=== PATIENT | female | born 1940 | race Two or more races ===

== ENCOUNTER 2021-11-10 11:33 | Inpatient (IN) | payer OTHER ==
[~2021-11-10] VITALS: Ht 154.9 cm; Wt 73.0 kg
[2021-11-10] MEDS ORDERED: JANUVIA100 MG (21:10)
[2021-11-10] MEDS ORDERED: TIROSINT25 MCG (21:12)
[2021-11-10] MEDS ORDERED: PEPCID AC20 MG (21:12)
[2021-11-10] MEDS ORDERED: RESTORIL30 MG (21:13)
[2021-11-10] MEDS ORDERED: OMEPRAZOLE20 MG (21:13)
[2021-11-10] MEDS ORDERED: STIOLTO RESPIMAT4 GM (21:13)
[2021-11-10] MEDS ORDERED: FUROSEMIDE40 MG (21:13)
[2021-11-10] MEDS ORDERED: PROLIA60 MG/1 ML (21:13)
[2021-11-10] MEDS ORDERED: TRULICITY0.75 MG/0. (21:13)
[2021-11-10] MEDS ORDERED: CLOPIDOGREL BIS75 MG (21:14)
[2021-11-10] MEDS ORDERED: AMLODIPINE BESYL5 MG (21:14)
[2021-11-18] MEDS ORDERED: STIOLTO RESPIMAT4 GM IH (19:02)
[2021-11-18] MEDS ORDERED: CLOPIDOGREL BIS75 MG PO (19:03)
[2021-11-18] MEDS ORDERED: AMLODIPINE BESYL5 MG PO (19:04)
[2021-11-18] MEDS ORDERED: HYDRALAZINE HCL25 MG PO (19:05)
[2021-11-18] MEDS ORDERED: RESTORIL15 MG PO (19:05)
[2021-11-18] MEDS ORDERED: FUROSEMIDE40 MG PO (19:06)
[2021-11-18] MEDS ORDERED: BUDESONIDE0.5 MG/2 M IH (19:07)
[2021-11-18] MEDS ORDERED: TUSSIN DM LIQU118 ML PO (19:08)
[2021-11-18] MEDS ORDERED: FAMOTIDINE40 MG PO (19:08)
[2021-11-18] MEDS ORDERED: OMEPRAZOLE20 MG PO (19:10)
[2021-11-18] MEDS ORDERED: JANUVIA100 MG PO (19:11)
[2021-11-18] MEDS ORDERED: LEVOTHYROXINE50 MCG PO (19:11)
[2021-11-18] MEDS ORDERED: FOLIC ACID1 MG PO (19:12)
[2021-11-18] MEDS ORDERED: PROTEINEX-18 LI30 ML PO (19:12)
== END 2021-11-18 20:30 | disposition home or self-care (01) | DRG 436 ==
LOC: MEDJ 11:33 → SEC-K 11:33 → MEDJ 20:13
PROVIDERS: ADMIT Internal Medicine Hematology & Oncology; ATTEND Internal Medicine Hematology & Oncology
PROC: 30233N1 Transfusion of Nonautologous Red Blood Cells into Peripheral Vein, Percutaneous Approach (ICD-10-PCS; 2021-11-10)
PROC: BW24ZZZ Computerized Tomography (CT Scan) of Chest and Abdomen (ICD-10-PCS; 2021-11-11)
PROC: 3E0F7GC Introduction of Other Therapeutic Substance into Respiratory Tract, Via Natural or Artificial Opening (ICD-10-PCS; 2021-11-11)
PROC: BW40ZZZ Ultrasonography of Abdomen (ICD-10-PCS; 2021-11-12)
PROC: 0FB03ZX Excision of Liver, Percutaneous Approach, Diagnostic (ICD-10-PCS; principal; 2021-11-16)
PROC: 0W9930Z Drainage of Right Pleural Cavity with Drainage Device, Percutaneous Approach (ICD-10-PCS; 2021-11-16)
DX: C78.7 Secondary malignant neoplasm of liver and intrahepatic bile duct (principal); C78.02 Secondary malignant neoplasm of left lung; C78.01 Secondary malignant neoplasm of right lung; J90 Pleural effusion, not elsewhere classified; J44.1 Chronic obstructive pulmonary disease with (acute) exacerbation; N17.9 Acute kidney failure, unspecified; D63.0 Anemia in neoplastic disease; I13.10 Hypertensive heart and chronic kidney disease without heart failure, with stage 1 through stage 4 chronic kidney disease, or unspecified chronic kidney disease; E11.22 Type 2 diabetes mellitus with diabetic chronic kidney disease; E11.65 Type 2 diabetes mellitus with hyperglycemia; N18.31 Chronic kidney disease, stage 3a; R59.0 Localized enlarged lymph nodes; E88.09 Other disorders of plasma-protein metabolism, not elsewhere classified; K59.03 Drug induced constipation; T45.4X5A Adverse effect of iron and its compounds, initial encounter; Z87.891 Personal history of nicotine dependence; Z79.4 Long term (current) use of insulin
CPT/HCPCS: 240

== ENCOUNTER 2022-03-04 12:56 | Inpatient (IN) | payer OTHER ==
[~2022-03-04 12:56] MED LIST: AMLODIPINE BESYL5 MG; AMLODIPINE BESYL5 MG PO; BUDESONIDE0.5 MG/2 M IH; CLOPIDOGREL BIS75 MG; CLOPIDOGREL BIS75 MG PO; FAMOTIDINE40 MG PO; FOLIC ACID1 MG PO; FUROSEMIDE40 MG; FUROSEMIDE40 MG PO; HYDRALAZINE HCL25 MG PO; JANUVIA100 MG; JANUVIA100 MG PO; LEVOTHYROXINE50 MCG PO; OMEPRAZOLE20 MG; OMEPRAZOLE20 MG PO; PEPCID AC20 MG; PROLIA60 MG/1 ML; PROTEINEX-18 LI30 ML PO; RESTORIL15 MG PO; RESTORIL30 MG; STIOLTO RESPIMAT4 GM; STIOLTO RESPIMAT4 GM IH; TIROSINT25 MCG; TRULICITY0.75 MG/0.; TUSSIN DM LIQU118 ML PO
[2022-03-06] MEDS ORDERED: EZETIMIBE10 MG (08:40)
[2022-03-06] MEDS ORDERED: YERVOY (08:40)
[2022-03-06] MEDS ORDERED: OPDIVO100 MG/10 (08:40)
[2022-03-06] MEDS ORDERED: CILOSTAZOL100 MG (08:40)
[2022-03-06] MEDS ORDERED: PENTOXIFYLLINE400 MG (08:40)
[2022-03-06] MEDS ORDERED: AZOPT10 ML (08:40)
[2022-03-06] MEDS ORDERED: DOXYCYCLINE HY100 MG (08:41)
[2022-03-06] MEDS ORDERED: ISOSORBIDE MONO30 M2 (08:41)
[2022-03-06] MEDS ORDERED: SOD FER GL62.5 MG/5 (08:41)
[2022-03-06] MEDS ORDERED: LOSARTAN POTAS100 MG (08:41)
[2022-03-06] MEDS ORDERED: ATORVASTATIN CA40 MG (08:41)
[2022-03-06] MEDS ORDERED: ADMELOG100 UNIT/1 (08:41)
[2022-03-06] MEDS ORDERED: PROLIA60 MG/1 ML (08:41)
[2022-03-06] MEDS ORDERED: PRAVASTATIN SOD40 MG (08:41)
== END 2022-03-06 17:24 | disposition home or self-care (01) | DRG 812 ==
LOC: MEDJ 12:56
PROVIDERS: ADMIT Internal Medicine Hematology & Oncology; ATTEND Internal Medicine Hematology & Oncology
PROC: 30233N1 Transfusion of Nonautologous Red Blood Cells into Peripheral Vein, Percutaneous Approach (ICD-10-PCS; 2022-03-05)
PROC: B54NZZZ Ultrasonography of Left Upper Extremity Veins (ICD-10-PCS; principal; 2022-03-06)
DX: D64.9 Anemia, unspecified (principal); C34.2 Malignant neoplasm of middle lobe, bronchus or lung; C78.00 Secondary malignant neoplasm of unspecified lung; C78.7 Secondary malignant neoplasm of liver and intrahepatic bile duct; I13.0 Hypertensive heart and chronic kidney disease with heart failure and stage 1 through stage 4 chronic kidney disease, or unspecified chronic kidney disease; D63.0 Anemia in neoplastic disease; E11.22 Type 2 diabetes mellitus with diabetic chronic kidney disease; N18.30 Chronic kidney disease, stage 3 unspecified; Z79.4 Long term (current) use of insulin; Z20.822 Contact with and (suspected) exposure to COVID-19; I50.9 Heart failure, unspecified; E03.9 Hypothyroidism, unspecified

== ENCOUNTER 2022-03-21 05:57 | Day surgery (SDC) | payer OTHER ==
[~2022-03-21 05:57] MED LIST changes: +ADMELOG100 UNIT/1; +ANORO ELLIPTA1 EACH IH; +ATORVASTATIN CA40 MG; +AZOPT10 ML; +CILOSTAZOL100 MG; +DOXYCYCLINE HY100 MG; +EZETIMIBE10 MG; +HYDRALAZINE HCL50 MG PO; +ISOSORBIDE MONO30 M2; +JARDIANCE10 MG PO; +LOSARTAN POTAS100 MG; +OPDIVO100 MG/10; +PENTOXIFYLLINE400 MG; +PRAVASTATIN SOD40 MG; +SOD FER GL62.5 MG/5; +YERVOY
== END 2022-03-21 17:00 | disposition home or self-care (01) ==
LOC: CIR.AMB 05:57
PROVIDERS: ATTEND Specialist
DX: C34.91 Malignant neoplasm of unspecified part of right bronchus or lung (principal); Z20.822 Contact with and (suspected) exposure to COVID-19; I25.10 Atherosclerotic heart disease of native coronary artery without angina pectoris; Z95.0 Presence of cardiac pacemaker; E78.5 Hyperlipidemia, unspecified; E11.9 Type 2 diabetes mellitus without complications; E03.9 Hypothyroidism, unspecified; N18.9 Chronic kidney disease, unspecified

== ENCOUNTER 2022-04-05 13:50 | Inpatient (IN) | payer OTHER ==
[~2022-04-05] VITALS: Ht 154.9 cm; Wt 159.7 kg
== END 2022-04-15 08:39 | disposition expired | DRG 180 ==
LOC: ER 13:50 → ICU-2 21:08 → ICU 21:08
PROVIDERS: ADMIT Internal Medicine; ATTEND Internal Medicine
PROC: 0W993ZZ Drainage of Right Pleural Cavity, Percutaneous Approach (ICD-10-PCS; 2022-04-06)
PROC: B24BYZZ Ultrasonography of Heart with Aorta using Other Contrast (ICD-10-PCS; 2022-04-06)
PROC: 05HY33Z Insertion of Infusion Device into Upper Vein, Percutaneous Approach (ICD-10-PCS; 2022-04-07)
PROC: 30243N1 Transfusion of Nonautologous Red Blood Cells into Central Vein, Percutaneous Approach (ICD-10-PCS; 2022-04-09)
PROC: 5A09457 Assistance with Respiratory Ventilation, 24-96 Consecutive Hours, Continuous Positive Airway Pressure (ICD-10-PCS; 2022-04-09)
PROC: 4B02XSZ Measurement of Cardiac Pacemaker, External Approach (ICD-10-PCS; 2022-04-09)
PROC: 0W9930Z Drainage of Right Pleural Cavity with Drainage Device, Percutaneous Approach (ICD-10-PCS; principal; 2022-04-11)
DX: C34.2 Malignant neoplasm of middle lobe, bronchus or lung (principal); I50.23 Acute on chronic systolic (congestive) heart failure; J96.02 Acute respiratory failure with hypercapnia; J96.01 Acute respiratory failure with hypoxia; I13.0 Hypertensive heart and chronic kidney disease with heart failure and stage 1 through stage 4 chronic kidney disease, or unspecified chronic kidney disease; C78.2 Secondary malignant neoplasm of pleura; N39.0 Urinary tract infection, site not specified; J91.0 Malignant pleural effusion; C78.7 Secondary malignant neoplasm of liver and intrahepatic bile duct; D63.0 Anemia in neoplastic disease; E11.22 Type 2 diabetes mellitus with diabetic chronic kidney disease; N18.32 Chronic kidney disease, stage 3b; J44.9 Chronic obstructive pulmonary disease, unspecified; I27.20 Pulmonary hypertension, unspecified; B96.1 Klebsiella pneumoniae [K. pneumoniae] as the cause of diseases classified elsewhere; B96.89 Other specified bacterial agents as the cause of diseases classified elsewhere; Z66 Do not resuscitate; Z79.4 Long term (current) use of insulin; Z95.828 Presence of other vascular implants and grafts